=== PATIENT | male | born 1960 | race Two or more races ===

== ENCOUNTER 2017-09-16 20:46 | Inpatient (IN) | payer OTHER ==
[~2017-09-16] VITALS: Ht 170.2 cm; Wt 70.4 kg
[2017-09-16 20:57] VITALS: Ht 170.2 cm; Wt 70.4 kg
[2017-09-16 22:15] LABS: BASOPHIL % 0.1 % (0-2); RED CELL DISTRIBUTION WIDTH 13.3 % (11.5-14.5)
[2017-09-16 22:19] LABS: PLATELET COUNT 116 x10^3mcL (130-400)
[2017-09-16 22:31] LABS: BILIRUBIN TOTAL 1.87 mg/dL (0.20-1.00); CALCIUM 8.2 mg/dL (8.5-10.1); CARBON DIOXIDE 23.1 mmol/L (21-32); POTASSIUM SERUM 4.1 mmol/L (3.5-5.1); TOTAL PROTEIN, SERUM 6.9 g/dL (6.4-8.2)
[2017-09-16 22:34] LABS: CREATININE SERUM 4.9 mg/dL (0.7-1.3)
[2017-09-17] VITALS (7 sets, daily range): BP systolic 101–127; BP diastolic 49–69
[2017-09-17] MEDS ORDERED: GLUCOTROL10 MG (00:46)
[2017-09-17] MEDS ORDERED: 8 HOUR650 MG (00:46)
[2017-09-17] MEDS ORDERED: TAM75 (00:46)
[2017-09-17] MEDS ORDERED: D3 20002000 IU (00:47)
[2017-09-17] MEDS ORDERED: ROC25 PO (00:47)
[2017-09-17] MEDS ORDERED: LISINOPRIL40 MG (00:48)
[2017-09-17] MEDS ORDERED: FERROUS SULFAT325 M2 PO (00:48)
[2017-09-17] MEDS ORDERED: AMLODIPINE BESY10 M2 PO (00:48)
[2017-09-17] MEDS ORDERED: FUROSEMIDE20 MG (00:48)
[2017-09-17] MEDS ORDERED: ASPIR 8181 MG (00:48)
[2017-09-17] MEDS ORDERED: TAMSULOSIN HCL0.4 MG (00:49)
[2017-09-17] MEDS ORDERED: TOPROL XL25 MG (00:49)
[2017-09-17] MEDS ORDERED: GABAPENTIN TAB600 M1 (00:49)
[2017-09-17] MEDS ORDERED: ATORVASTATIN CA40 M1 (00:49)
[2017-09-17 04:43] LABS: microscopic required? YES; urine erythrocyte 2+ (NEGATIVE)
[2017-09-17 06:32] LABS: RED CELL DISTRIBUTION WIDTH 13.3 % (11.5-14.5)
[2017-09-17 06:46] LABS: PLATELET COUNT 102 x10^3mcL (130-400)
[2017-09-17 08:47] LABS: CALCIUM 7.9 mg/dL (8.5-10.1); CARBON DIOXIDE 23.5 mmol/L (21-32); POTASSIUM SERUM 4.1 mmol/L (3.5-5.1)
[2017-09-17 08:48] LABS: CREATININE SERUM 4.9 mg/dL (0.7-1.3)
[2017-09-17 09:05] LABS: MAGNESIUM 2.3 mg/dL (1.8-2.4)
[2017-09-17 09:24] LABS: CHOLESTEROL/HDL RATIO 2.5
[2017-09-17 10:16] LABS: AMPHETAMINE QUAL UR NONE DETECTED (NEG <=1000)
[2017-09-17 11:33] LABS: BAND NEUTROPHIL 11 % (0-10); BASOPHIL 0 % (0-2); MONOCYTE 3 % (0-7); SEGMENTED NEUTROPHILS 75 % (37-75)
[2017-09-17 11:34] LABS: ovalocyte/elliptocyte 1+; rbc morphology (normal/abnorm) ABNORMAL (NORMAL)
[2017-09-18 05:54] VITALS: BP 129/64
[2017-09-18 06:54] LABS: CALCIUM 7.6 mg/dL (8.5-10.1); POTASSIUM SERUM 4.1 mmol/L (3.5-5.1)
[2017-09-18 07:05] LABS: BASOPHIL % 0 % (0-2); PLATELET COUNT 114 x10^3mcL (130-400); RED CELL DISTRIBUTION WIDTH 13.4 % (11.5-14.5)
[2017-09-18 08:06] LABS: CREATININE SERUM 4.6 mg/dL (0.7-1.3)
[2017-09-18 10:18] VITALS: BP 123/64
[2017-09-18 17:45] VITALS: BP 132/71
[2017-09-18 21:31] VITALS: BP 143/70
[2017-09-19 06:06] VITALS: BP 162/77
[2017-09-19 06:55] LABS: BASOPHIL % 0.3 % (0-2); PLATELET COUNT 158 x10^3mcL (130-400); RED CELL DISTRIBUTION WIDTH 13.6 % (11.5-14.5)
[2017-09-19 07:06] LABS: CALCIUM 8.1 mg/dL (8.5-10.1); CARBON DIOXIDE 21.4 mmol/L (21-32)
[2017-09-19 07:10] LABS: CREATININE SERUM 4.1 mg/dL (0.7-1.3)
[2017-09-19 10:22] VITALS: BP 113/68
[2017-09-19 13:35] VITALS: BP 148/77
[2017-09-19 19:05] VITALS: BP 145/63
[2017-09-19 20:19] VITALS: BP 154/74
[2017-09-20 05:46] VITALS: BP 156/81
[2017-09-20 07:41] LABS: BASOPHIL % 0.7 % (0-2); PLATELET COUNT 193 x10^3mcL (130-400); RED CELL DISTRIBUTION WIDTH 13.6 % (11.5-14.5)
[2017-09-20 07:59] LABS: CALCIUM 8.6 mg/dL (8.5-10.1); CARBON DIOXIDE 20.3 mmol/L (21-32); CREATININE SERUM 3.7 mg/dL (0.7-1.3); POTASSIUM SERUM 4.1 mmol/L (3.5-5.1)
[2017-09-20 08:42] VITALS: BP 156/81
[2017-09-20 10:05] VITALS: BP 156/73
[2017-09-20 17:31] VITALS: BP 159/73
[2017-09-20 19:53] VITALS: BP 155/77
[2017-09-20 21:07] VITALS: BP 156/73
[2017-09-21 05:48] VITALS: BP 148/73
[2017-09-21 07:20] LABS: BASOPHIL % 0.5 % (0-2); PLATELET COUNT 241 x10^3mcL (130-400); RED CELL DISTRIBUTION WIDTH 13.8 % (11.5-14.5)
[2017-09-21 07:43] LABS: CREATININE SERUM 3.7 mg/dL (0.7-1.3); MAGNESIUM 2.7 mg/dL (1.8-2.4); POTASSIUM SERUM 4.1 mmol/L (3.5-5.1)
[2017-09-21 09:08] VITALS: BP 169/79
[2017-09-21 13:35] VITALS: BP 165/79
[2017-09-21 14:51] VITALS: BP 165/79
== END 2017-09-21 20:06 | disposition other institution (70) | DRG 177 ==
LOC: ED 20:46 → DU 23:36
PROVIDERS: Emergency Medicine; Internal Medicine; Internal Medicine Nephrology
DX: J69.0 Pneumonitis due to inhalation of food and vomit (principal); G93.41 Metabolic encephalopathy; J96.91 Respiratory failure, unspecified with hypoxia; N17.9 Acute kidney failure, unspecified; J44.1 Chronic obstructive pulmonary disease with (acute) exacerbation; E87.2 Acidosis; N18.4 Chronic kidney disease, stage 4 (severe); E11.22 Type 2 diabetes mellitus with diabetic chronic kidney disease; D89.9 Disorder involving the immune mechanism, unspecified; J02.9 Acute pharyngitis, unspecified; I12.9 Hypertensive chronic kidney disease with stage 1 through stage 4 chronic kidney disease, or unspecified chronic kidney disease; I25.10 Atherosclerotic heart disease of native coronary artery without angina pectoris; E11.649 Type 2 diabetes mellitus with hypoglycemia without coma; N40.0 Benign prostatic hyperplasia without lower urinary tract symptoms; D63.1 Anemia in chronic kidney disease
CPT/HCPCS: 36600; 82962; 83880; 87804; 94150; A9500; J1644; J2543; J2785; J3490; J7042; J7620; J7626; Q0092